=== PATIENT | female | born 1950 | race Caucasian/White ===

== ENCOUNTER → 2016-10-10 | Day surgery (SDC) | payer OTHER ==
[~2016-10-10] MED LIST: AMLO5TAB96 PO; BUPIVACAINE HCL PF 0.5% 30 ML VIAL ONE; BUPIVACAINE/EPINEPHRINE 0.5% PF 30 ML VIAL ONE; KETOROLAC TROMETHAMINE 30 MG/ML (IVP) VIAL IV PUSH ONE; LACTATED RINGER'S 1000 ML INJ 1,000 ML ONE; MIDAZOLAM HCL 2 MG/2 ML VIAL ONE; ONDANSETRON HCL 4 MG/2 ML VIAL IV PUSH ONE; PROPOFOL 200 MG/20 ML AMP IV ONE; SYNT25TA PO; ceFAZolin 2 GM PREMIX 50 ML ONE
--- NOTE | 2016-10-10 18:16 | MP ---
cc: ONEL LOPES MD DATE OF SURGERY 10/10/16 PREOPERATIVE DIAGNOSIS Chronic cholecystitis, cholelithiasis. POSTOPERATIVE DIAGNOSIS Chronic cholecystitis, cholelithiasis. PROCEDURE Laparoscopic cholecystectomy. SURGEON Karel Lopes MD ANESTHESIA General endotracheal OPERATIVE FINDINGS The patient was found to have a chronically diseased appearing thick-walled somewhat shrunken gallbladder filled with large stones. The cystic duct and common bile duct were seen to be of normal caliber. The patient had a few adhesions to the anterior abdominal wall around the umbilicus, but no other abnormalities were noted. OPERATIVE PROCEDURE The patient was brought to the operating room and, after satisfactory general endotracheal anesthesia was obtained, the abdomen was prepped and draped in the usual sterile fashion. 0.5% Marcaine with epinephrine was used to infiltrate the skin for local anesthesia. A small incision was made just above the umbilicus and a 5 mm trocar inserted into the peritoneal cavity under direct visualization. The abdomen was distended to 15 mmHg using carbon dioxide after which the camera was reinserted and visceral injury inspected for, with none being identified. Under direct visualization, a 12 port and a 5 port were placed in the upper abdomen. The fundus of the gallbladder was grasped and retracted superiorly over the right lobe of the liver after which Michael's pouch was grasped and retracted inferiorly and laterally, placing tension on the hepatoduodenal ligament. The cystic duct and cystic artery were dissected free bluntly to obtain the critical view. Once the critical view had been obtained, the cystic duct was divided with the harmonic scalpel near ___ with the gallbladder. The cystic artery was likewise divided near ___ with the gallbladder using the harmonic scalpel. The Harmonic was then used to dissect the gallbladder free from the liver bed. It was placed within an EndoCatch bag and brought through the upper midline incision where it was withdrawn without problem. The liver bed was then inspected and found to be hemostatic. The cystic duct and cystic artery stumps were both seen to be intact with no leakage of bile or blood. The carbon dioxide was vented as completely as possible after which the ports were removed and the 12 mm fascial defect closed with interrupted 0 Vicryl sutures. The skin was closed with interrupted 4-0 Monocryl subcuticular stitch. Steri-Strips were applied and the patient was then awakened and taken from the operating room, in satisfactory condition, having tolerated the procedure without problem. The gallbladder was passed for permanent pathology. Estimated blood loss was less than 5 mL. The instrument, sponge, needle counts were reported as being correct x2 at the end of the procedure. ATTENDING PHYSICIAN Much MD LYNETTE Bonilla/ /9:06 AM /5:56 PM
== END | disposition home or self-care (01) ==
LOC: ESDC 06:59
PROVIDERS: ATTEND Surgery
DX: K80.10 Calculus of gallbladder with chronic cholecystitis without obstruction (principal)
CPT/HCPCS: 00790; 47562; 88304; J0690; J1885; J2250; J2405; J3010; J7120